=== PATIENT | female | born 1980 | race Two or more races ===

== ENCOUNTER 2017-05-06 16:19 | Inpatient (IN) | payer BC ==
[~2017-05-06] VITALS: Ht 175.3 cm; Wt 85.9 kg
[2017-05-06] MEDS ORDERED: PREN1TAB60 PO (16:46)
[2017-05-06] MEDS ORDERED: FERR325T5 PO (16:46)
[2017-05-06 16:47] VITALS: BP 123/73
[2017-05-06] MEDS ORDERED: D5%-LACTATED RINGERS 1,000 ML IV SCH (19:20)
[2017-05-06] MEDS ORDERED: OXYTOCIN 30U/ 0.9% NaCL 500ML 500 ML IV ONE (19:20)
[2017-05-06] MEDS ORDERED: MISOPROSTOL 200 MCG TABLET ONE (19:21)
[2017-05-06] MEDS ORDERED: LIDOCAINE 1%, 20ML ONE (19:21)
[2017-05-06] MEDS ORDERED: NEWBORN KIT ONE (19:21)
[2017-05-06] MEDS ORDERED: OXYTOCIN 30U/ 0.9% NaCL 500ML 500 ML ONE (19:22)
[2017-05-06] MEDS ORDERED: FENTANYL PF 100 MCG/2ML IV PRN (19:30)
[2017-05-06] MEDS ORDERED: ONDANSETRON 2MG/ML, 2ML IVPush PRN ×2 (19:30→22:30)
[2017-05-06] MEDS ORDERED: FENTANYL PF 100 MCG/2ML IVPush PRN (19:30)
[2017-05-06] MEDS ORDERED: CALCIUM CARBONATE 500 MG TAB.CHEW PO PRN (19:30)
[2017-05-06 19:46] LABS: BASOPHILS # (AUTO) 0.06 x10^3/uL (0-0.1); BASOPHILS % (AUTO) 1 % (0-1); EOSINOPHILS # (AUTO) 0.02 x10^3/uL (0-0.4); EOSINOPHILS % (AUTO) 0 % (1-7); LYMPHOCYTES # (AUTO) 1.65 x10^3/uL (1-3.4); LYMPHOCYTES % (AUTO) 12 % (22-44); MD NO; MEAN CORPUSCULAR HEMOGLOBIN 31.1 pg (27.0-34.8); MEAN CORPUSCULAR HGB CONC 33.6 g/dL (32.4-35.8); MEAN CORPUSCULAR VOLUME 92.5 fL (80-100); MEAN PLATELET VOLUME 8.3 fL (7.4-10.4); MONOCYTES # (AUTO) 0.73 x10^3/uL (0.2-0.8); MONOCYTES % (AUTO) 5 % (2-9); NEUTROPHILS # (AUTO) 11.25 x10^3/uL (1.8-6.8); NEUTROPHILS % (AUTO) 82 % (42-75); PLATELET COUNT 245 x10^3/uL (130-400); RED CELL DISTRIBUTION WIDTH 13.6 % (9.6-15.2)
[2017-05-06] MEDS: LACTATED RINGERS 1,000 ML IV SCH ×2 (21:02→21:32)
[2017-05-06] MEDS ORDERED: FENTANYL PF 100 MCG/2ML ONE (21:04)
[2017-05-06] MEDS ORDERED: BUPIVACAINE/PF 0.25% ONE (21:44)
[2017-05-06] MEDS ORDERED: FENTANYL/BUPIV./NS/PF 250 ML EPIDCONT ONE ×2 (21:44→21:50)
[2017-05-06] MEDS ORDERED: BUPIVACAINE 0.25% ONE (21:50)
[2017-05-06] MEDS ORDERED: LACTATED RINGERS 1,000 ML IV SCH (22:21)
[2017-05-06] MEDS ORDERED: FENTANYL/BUPIV./NS/PF 250 ML EPIDCONT SCH (22:21)
[2017-05-06] MEDS ORDERED: LACTATED RINGERS 1,000 ML IVBOLUS PRN (22:30)
[2017-05-06] MEDS ORDERED: NALOXONE 0.4 MG/ML, 1ML IVPush PRN (22:30)
[2017-05-06] MEDS ORDERED: DIPHENHYDRAMINE 50 MG/ML, 1ML IVPush PRN (22:30)
[2017-05-06] MEDS ORDERED: EPHEDRINE 50 MG/ML, 1ML IVPush PRN (22:30)
[2017-05-07] MEDS ORDERED: OXYTOCIN 30U/ 0.9% NaCL 500ML 500 ML IV SCH (05:35)
[2017-05-07] MEDS ORDERED: IBUPROFEN 600 MG TABLET ONE (05:48)
[2017-05-07] MEDS ORDERED: OXYTOCIN 30U/ 0.9% NaCL 500ML 500 ML ONE (05:48)
[2017-05-07] MEDS ORDERED: ONDANSETRON 2MG/ML, 2ML IV PRN (06:00)
[2017-05-07] MEDS ORDERED: DOCUSATE 100 MG CAPSULE PO PRN (06:00)
[2017-05-07] MEDS ORDERED: MISOPROSTOL 200 MCG TABLET PR PRN (06:00)
[2017-05-07] MEDS ORDERED: ACETAMINOPHEN 325 MG TABLET PO PRN (06:00)
[2017-05-07] MEDS ORDERED: OXYcodone/APAP 5/325MG TABLET PO PRN (06:00)
[2017-05-07] MEDS ORDERED: METHYLERGONOVINE 0.2 MG/ML IM PRN (06:00)
[2017-05-07] MEDS ORDERED: GLYCERIN ADULT SUPP PR PRN (06:00)
[2017-05-07] MEDS: IBUPROFEN 600 MG TABLET PO PRN ×3 (06:50→19:39)
[2017-05-07 07:55] VITALS: BP 109/60
[2017-05-07] MEDS: PRENATAL VIT/IRON/FA 1 EACH TABLET PO SCH (09:00)
[2017-05-07 12:00] VITALS: BP 110/68
[2017-05-07 16:00] VITALS: BP 100/64
[2017-05-07 19:48] VITALS: BP 107/64
[2017-05-08] MEDS: IBUPROFEN 600 MG TABLET PO PRN (01:38)
[2017-05-08 05:39] LABS: BASOPHILS # (AUTO) 0.04 x10^3/uL (0-0.1); BASOPHILS % (AUTO) 0 % (0-1); EOSINOPHILS # (AUTO) 0.04 x10^3/uL (0-0.4); EOSINOPHILS % (AUTO) 0 % (1-7); LYMPHOCYTES # (AUTO) 2.12 x10^3/uL (1-3.4); LYMPHOCYTES % (AUTO) 16 % (22-44); MD NO; MEAN CORPUSCULAR HEMOGLOBIN 31.7 pg (27.0-34.8); MEAN CORPUSCULAR HGB CONC 34.1 g/dL (32.4-35.8); MEAN CORPUSCULAR VOLUME 92.8 fL (80-100); MEAN PLATELET VOLUME 8.4 fL (7.4-10.4); MONOCYTES # (AUTO) 0.59 x10^3/uL (0.2-0.8); MONOCYTES % (AUTO) 5 % (2-9); NEUTROPHILS # (AUTO) 10.41 x10^3/uL (1.8-6.8); NEUTROPHILS % (AUTO) 79 % (42-75); PLATELET COUNT 203 x10^3/uL (130-400); RED BLOOD COUNT 3.42 x10^6/uL (3.82-5.3); RED CELL DISTRIBUTION WIDTH 13.9 % (9.6-15.2)
[2017-05-08 08:05] VITALS: BP 100/65
[2017-05-08] MEDS: PRENATAL VIT/IRON/FA 1 EACH TABLET PO SCH (09:00)
[2017-05-08] MEDS ORDERED: IBUP-1223 PO (13:57)
== END 2017-05-08 13:40 | disposition home or self-care (01) | DRG 775 ==
LOC: LDOP 16:19 → LDIP 19:26 → 2NW 05-07 07:20
PROVIDERS: ADMIT Obstetrics & Gynecology; ATTEND Obstetrics & Gynecology
PROC: 10E0XZZ Delivery of Products of Conception, External Approach (ICD-10-PCS; principal; 2017-05-07)
PROC: 0HQ9XZZ Repair Perineum Skin, External Approach (ICD-10-PCS; 2017-05-07)
PROC: 0UQMXZZ Repair Vulva, External Approach (ICD-10-PCS; 2017-05-07)
PROC: 3E0R3BZ Introduction of Anesthetic Agent into Spinal Canal, Percutaneous Approach (ICD-10-PCS; 2017-05-07)
PROC: 00HU33Z Insertion of Infusion Device into Spinal Canal, Percutaneous Approach (ICD-10-PCS; 2017-05-07)
DX: O99.02 Anemia complicating childbirth (principal); D64.9 Anemia, unspecified; O70.0 First degree perineal laceration during delivery; Z37.0 Single live birth; Z87.891 Personal history of nicotine dependence
CPT/HCPCS: 36415; 85025; 86850; 86900; J3010; J3490; J2590; J7120

== ENCOUNTER 2017-05-24 20:19 | Emergency (ER) | payer BC ==
[~2017-05-24] VITALS: Ht 175.3 cm; Wt 80.7 kg
[~2017-05-24 20:19] MED LIST: FERR325T5 PO; IBUP-1223 PO; PREN1TAB60 PO
[2017-05-24] MEDS ORDERED: SODIUM CHLORIDE 0.9% 1,000ML IVBOLUS ONE (20:30)
[2017-05-24 21:10] LABS: BASOPHILS # (AUTO) 0.04 x10^3/uL (0-0.1); BASOPHILS % (AUTO) 0 % (0-1); EOSINOPHILS # (AUTO) 0.06 x10^3/uL (0-0.4); EOSINOPHILS % (AUTO) 1 % (1-7); LYMPHOCYTES # (AUTO) 0.93 x10^3/uL (1-3.4); LYMPHOCYTES % (AUTO) 8 % (22-44); MD NO; MEAN CORPUSCULAR HGB CONC 33.9 g/dL (32.4-35.8); MEAN CORPUSCULAR VOLUME 91.6 fL (80-100); MEAN PLATELET VOLUME 7.8 fL (7.4-10.4); MONOCYTES # (AUTO) 0.29 x10^3/uL (0.2-0.8); MONOCYTES % (AUTO) 3 % (2-9); NEUTROPHILS # (AUTO) 10.22 x10^3/uL (1.8-6.8); NEUTROPHILS % (AUTO) 89 % (42-75); PLATELET COUNT 297 x10^3/uL (130-400); RED BLOOD COUNT 4.45 x10^6/uL (3.82-5.3); RED CELL DISTRIBUTION WIDTH 13.2 % (9.6-15.2)
[2017-05-24 21:23] LABS: ALANINE AMINOTRANSFERASE 27 U/L (12-78); ALBUMIN 3.5 g/dL (3.4-5.0); ANION GAP 7 mmol/L (5-15); CALCIUM 8.9 mg/dL (8.5-10.1); CHLORIDE 104 mmol/L (98-107); CREATININE 0.92 mg/dL (0.55-1.02)
[2017-05-24 21:25] LABS: ALKALINE PHOSPHATASE 107 U/L (45-117); BILIRUBIN,TOTAL 0.4 mg/dL (0.2-1.0); TOTAL PROTEIN 7.7 g/dL (6.4-8.2)
[2017-05-24 21:38] LABS: MICROSCOPIC AUTO
[2017-05-24 21:40] LABS: CULTURE INDICATED? YES
[2017-05-24 22:58] VITALS: BP 125/73
== END 2017-05-24 23:00 | disposition home or self-care (01) ==
LOC: ED 22:22
DX: R50.9 Fever, unspecified (principal); Z87.891 Personal history of nicotine dependence
CPT/HCPCS: 36415; 76830; 80053; 81001; 85025; 87086; 96360; 99285; J7030